=== PATIENT | male | born 1990 | race African-American/Black ===

== ENCOUNTER 2020-11-22 19:25 | Emergency (ER) | payer OTHER ==
[~2020-11-22] VITALS: Ht 172.7 cm; Wt 93.1 kg
[~2020-11-22 19:25] MED LIST: ALPR0.5T6 PO; SERT50TA PO
[2020-11-22 20:04] LABS: BASO % 0 % (0-3); EOS % 0 % (0-3); HEMATOCRIT 45.6 % (39.0-53.0); HEMOGLOBIN 15.6 g/dL (13.0-17.5); LYMPH # 0.6 x10^3/uL (1.0-4.8); LYMPH % 7 % (24-48); MEAN CORPUSCULAR HEMOGLOBIN 27 pg (25-35); MEAN CORPUSCULAR HGB CONC 34 g/dL (31-37); MEAN CORPUSCULAR VOLUME 80 fL (79-100); MONO # 0.4 x10^3/uL (0.0-1.1); MONO % 5 % (0-9); NEUT # 8.1 x10^3/uL (1.8-7.7); NEUT % 89 % (31-73); PLATELET COUNT 188 x10^3/uL (140-400); RED BLOOD COUNT 5.69 x10^6/uL (4.30-5.70); RED CELL DISTRIBUTION WIDTH 14.2 % (11.5-14.5); WHITE BLOOD COUNT 9.1 x10^3/uL (4.0-11.0)
[2020-11-22 20:14] LABS: CALCIUM 9.7 mg/dL (8.5-10.1); GFR 104.8; POTASSIUM 3.6 mmol/L (3.5-5.1)
[2020-11-22] MEDS ORDERED: IV NORMAL SALINE 1000ML BAG 1,000 ML IV ONE (20:15)
[2020-11-22 20:20] LABS: ALBUMIN 4.1 g/dL (3.4-5.0); ALBUMIN/GLOBULIN RATIO 0.9 (1.0-1.7); TOTAL BILIRUBIN 0.9 mg/dL (0.2-1.0); TOTAL PROTEIN 8.6 g/dL (6.4-8.2)
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
[2020-11-22 20:29] LABS: % BANDS 2 % (0-9); % LYMPHS 3 % (24-48); % MONOS 5 % (0-10); % SEGS 90 % (35-66)
[2020-11-22] MEDS ORDERED: CONTRAST GIVEN. MC PRN (20:30)
[2020-11-22] MEDS ORDERED: IOHEXOL 300 MG/ML 100ML VIAL. IV ONE (20:30)
[2020-11-22 20:31] LABS: PLT ESTIMATE ADEQUATE (ADEQUATE)
--- NOTE | 2020-11-22 21:07 | RAD ---
CT abdomen and pelvis with contrast: Reason for examination: Left-sided abdominal pain with nausea and vomiting. Helical images were obtained through the abdomen and pelvis with intravenous administration of 75 cc Omnipaque 300. Reconstruction was performed in sagittal and coronal planes. Exposure: One or more of the following individualized dose reduction techniques were utilized for thi s examination: 1. Automated exposure control 2. Adjustment of the mA and/or kV according to patient size 3. Use of iterative reconstruction technique. The lung bases are clear. The heart size is normal with no pericardial effusion. The liver is normal in size but there is intrahepatic biliary air post cholecystectomy. No abnormalit y seen at the spleen, adrenal glands or pancreas. The abdominal aorta and inferior vena cava show no acute abnormalities. There is a surgical anastomosis at the rectosigmoid junction. There appears to b e a surgical anastomosis in the region of the splenic flexure. There also appears to be an ileocolic anastomosis. There appear to be postop changes in the upper abdomen with gastrojejunal anastomosis an d possible resection of the pancreatic head. The stomach appears distended with large amount of gastr ic content. The kidneys show no renal masses, renal calculi, hydronephrosis or evidence of obstructiv e uropathy. No abnormality seen at the bladder, prostate gland or seminal vesicles. Artifact is seen from the lef t total hip prosthesis. No free fluid or free air seen in the abdomen or pelvis. No acute bony abnorm alities are seen. IMPRESSION: Postop changes in the upper abdomen with gastrojejunal anastomosis. Ileocolonic and colorectal anastomosis. Distention of the stomach. Intrahepatic biliary air post cholecystectomy. Electronically signed by: Ashia Villanueva MD (11/22/2020 9:05 PM) MADDY
[2020-11-22 21:30] VITALS: BP 140/68
[2020-11-22] MEDS ORDERED: KETOROLAC 30 MG/ML VIAL. ONE (21:40)
[2020-11-22] MEDS ORDERED: KETOROLAC 30 MG/ML VIAL. IVP ONE (21:45)
== END 2020-11-22 21:47 | disposition home or self-care (01) ==
LOC: EEVIPCON 19:25 → ER 19:25
DX: R10.9 Unspecified abdominal pain (principal); R11.2 Nausea with vomiting, unspecified; R68.83 Chills (without fever); Z90.49 Acquired absence of other specified parts of digestive tract
CPT/HCPCS: 74177; 80053; 83690; 85007; 85025; 96361; 96374; 99285; J1885; J7030; Q9967

== ENCOUNTER 2021-01-26 09:34 | Emergency (ER) | payer OTHER ==
[~2021-01-26] VITALS: Ht 190.5 cm; Wt 86.6 kg
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
[2021-01-26 09:59] LABS: BASO % 0 % (0-3); EOS % 0 % (0-3); HEMATOCRIT 49.1 % (39.0-53.0); HEMOGLOBIN 16.5 g/dL (13.0-17.5); LYMPH # 1.9 x10^3/uL (1.0-4.8); LYMPH % 21 % (24-48); MEAN CORPUSCULAR HEMOGLOBIN 27 pg (25-35); MEAN CORPUSCULAR HGB CONC 34 g/dL (31-37); MEAN CORPUSCULAR VOLUME 80 fL (79-100); MONO # 0.3 x10^3/uL (0.0-1.1); MONO % 3 % (0-9); NEUT # 7.2 x10^3/uL (1.8-7.7); NEUT % 76 % (31-73); PLATELET COUNT 285 x10^3/uL (140-400); RED BLOOD COUNT 6.11 x10^6/uL (4.30-5.70); RED CELL DISTRIBUTION WIDTH 14.4 % (11.5-14.5); WHITE BLOOD COUNT 9.5 x10^3/uL (4.0-11.0)
[2021-01-26] MEDS ORDERED: ONDANSETRON PF 4 MG/2 ML VIAL. IVP ONE ×2 (10:00→11:30)
[2021-01-26] MEDS ORDERED: MORPHINE SULFATE 4 MG/ML INJ. IVP ONE (10:00)
[2021-01-26] MEDS ORDERED: IV NORMAL SALINE 1000ML BAG 1,000 ML IV ONE (10:00)
[2021-01-26 10:13] LABS: CALCIUM 9.5 mg/dL (8.5-10.1); CREATININE 1.1 mg/dL (0.7-1.3); GFR 93.9; POTASSIUM 3.2 mmol/L (3.5-5.1)
[2021-01-26] MEDS ORDERED: IOHEXOL 300 MG/ML 100ML VIAL. IV ONE (10:15)
[2021-01-26 10:19] LABS: ALBUMIN 4.5 g/dL (3.4-5.0); ALBUMIN/GLOBULIN RATIO 0.9 (1.0-1.7); TOTAL BILIRUBIN 0.4 mg/dL (0.2-1.0); TOTAL PROTEIN 9.4 g/dL (6.4-8.2)
[2021-01-26] MEDS ORDERED: MORPHINE SULFATE 2 MG/ML INJ. IVP ONE (10:45)
[2021-01-26 11:15] VITALS: BP 176/103
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
[2021-01-26] MEDS ORDERED: ONDANSETRON ODT 4 MG TAB.RAPDIS. ONE (11:44)
[2021-01-26] MEDS ORDERED: ONDANSETRON ODT 4 MG TAB.RAPDIS. PO ONE (11:45)
[2021-01-26 11:49] LABS: BILIRUBIN,URINE NEGATIVE (NEG); CLARITY,URINE CLEAR; COLOR,URINE YELLOW; NITRITE,URINE NEGATIVE (NEG); PH,URINE 7.5 (<5.0-8.0); PROTEIN,URINE NEGATIVE (NEG-TRACE); UROBILINOGEN,URINE 0.2 mg/dL (0.2 mg/dL)
[2021-01-26 11:58] LABS: BACTERIA,URINE 0 /HPF (0-FEW); RBC,URINE 0 /HPF (0-2); WBC,URINE 0 /HPF (0-4)
[2021-01-26 12:26] LABS: INFLUENZA A PATIENT NEGATIVE (NEGATIVE); INFLUENZA B PATIENT NEGATIVE (NEGATIVE)
[2021-01-26] MEDS ORDERED: ONDA4TAB7 PO (12:36)
[2021-01-26] MEDS ORDERED: ACET325C6 PO (12:36)
[2021-01-26 13:03] LABS: BARBITURATES NEG (NEG); BENZODIAZEPINES NEG (NEG); CANNABINOIDS NEG (NEG); COCAINE NEG (NEG); METHADONE NEG (NEG); OPIATES POS (NEG); PHENCYCLIDINE NEG (NEG)
[2021-01-26 13:04] LABS: AMPHETAMINE/METHAMPHETAMINE NEG (NEG)
== END 2021-01-26 12:50 ==
LOC: ER 09:34
DX: R10.84 Generalized abdominal pain (principal); Z20.822 Contact with and (suspected) exposure to COVID-19; Z87.891 Personal history of nicotine dependence; Z90.49 Acquired absence of other specified parts of digestive tract
CPT/HCPCS: 36415; 74177; 80053; 80307; 81001; 83690; 85025; 87426; 87804; 96361; 96374; 96375; 96376; 99285; J2270; J2405; J7030; Q9967; U0003; U0005